=== PATIENT | female | born 2000 | race Caucasian/White ===

== ENCOUNTER 2023-03-12 10:40 | Emergency (ER) | payer OTHER ==
[2023-03-12 11:09] VITALS: BP 109/69; PULSE 95; RESP 18; TEMP 98.7; BMI 21.2
== END 2023-03-12 12:57 | disposition home or self-care (01) ==
LOC: FER 10:40
DX: S63.610A Unspecified sprain of right index finger, initial encounter (principal); W23.0XXA Caught, crushed, jammed, or pinched between moving objects, initial encounter
CPT/HCPCS: 73140-TC-RT-FY; 99283-25

== ENCOUNTER 2023-05-23 20:10 | Emergency (ER) | payer BC, OTHER ==
[2023-05-23 20:18] VITALS: BP 102/74; PULSE 72; RESP 16; TEMP 97.4; BMI 22.0
== END 2023-05-23 23:53 | disposition home or self-care (01) ==
LOC: FER 20:10
DX: R05.9 Cough, unspecified (principal); R50.9 Fever, unspecified; R09.89 Other specified symptoms and signs involving the circulatory and respiratory systems; J40 Bronchitis, not specified as acute or chronic; Z20.822 Contact with and (suspected) exposure to COVID-19
CPT/HCPCS: 0241U-QW; 99283-25

== ENCOUNTER 2023-06-28 21:12 | Emergency (ER) | payer BC ==
[2023-06-28 21:25] VITALS: BP 108/66; PULSE 58; RESP 16; TEMP 97.8; BMI 21.9
[2023-06-28] MEDS: SODIUM CHLORIDE 1,000 ML IV ONE (22:54)
[2023-06-28 22:59] LABS: HEMATOCRIT 39.2 % (32.4-45.2); HEMOGLOBIN 12.7 G/dL (10.7-15.3); MCH 28.4 pg (25.7-33.7); MCHC 32.3 g/dl (32.0-36.0); MEAN CELL VOLUME 87.8 fl (80-96); MEAN PLT VOLUME 8.6 fl (7.5-11.1); PLATELET COUNT 216.9 10^3/uL (134-434); RBC 4.46 10^6/uL (3.60-5.2); RDW 15.9 % (11.6-15.6); WHITE BLOOD COUNT 10.5 10^3/uL (4.0-10.8)
[2023-06-28 23:16] LABS: ALBUMIN 4.5 g/dl (3.4-5.0); BILIRUBIN,TOTAL 0.6 mg/dl (0.2-1); CALCIUM 9.1 mg/dl (8.5-10.1); CREATININE 0.6 mg/dl (0.6-1.3); POTASSIUM 3.8 mmol/L (3.5-5.1); TOT PROT 6.2 g/dl (6.4-8.2)
[2023-06-28 23:24] LABS: EPITHELIAL CELLS 0-5 /hpf
== END 2023-06-28 23:59 | disposition home or self-care (01) ==
LOC: FER 21:12
PROC: 3E0337Z Introduction of Electrolytic and Water Balance Substance into Peripheral Vein, Percutaneous Approach (ICD-10-PCS; principal; 2023-06-28)
DX: O26.891 Other specified pregnancy related conditions, first trimester (principal); R10.30 Lower abdominal pain, unspecified; Z3A.01 Less than 8 weeks gestation of pregnancy
CPT/HCPCS: 36415; 76817-TC; 80053; 81003; 81015; 84702; 85027; 86850; 86900; 86901; 87086; 99284-25